=== PATIENT | male | born 1990 | race African-American/Black ===

== ENCOUNTER 2020-01-11 21:05 | Emergency (ER) | payer OTHER ==
[~2020-01-11] VITALS: Ht 162.6 cm; Wt 45.4 kg
[2020-01-11 21:12] VITALS: BP 132/78
[2020-01-11] MEDS ORDERED: PREDNISONE 20 M20 MG PO (21:22)
[2020-01-11] MEDS ORDERED: FAMOTIDINE 20 M20 MG PO (21:22)
== END 2020-01-11 21:29 | disposition home or self-care (01) ==
LOC: M.ERS 21:05
DX: L50.9 Urticaria, unspecified (principal); T78.40XA Allergy, unspecified, initial encounter; X58.XXXA Exposure to other specified factors, initial encounter